=== PATIENT | male | born 1990 | race Caucasian/White ===

== ENCOUNTER → 2024-06-04 08:49 | Outpatient (BNVA) | payer MEDICAID, SELFPAY | PROVIDERS: Family Provider Family Medicine; Visit Provider Orthopaedic Surgery | DX: M25.512 Pain in left shoulder (principal); G89.29 Other chronic pain | CPT/HCPCS: 73030 ==

== ENCOUNTER 2024-06-12 09:08 | Outpatient (CLI) | payer MEDICAID, SELFPAY ==
--- NOTE | 2024-06-12 09:30 | MR_ITS ---
WS: [id number] MRI LEFT SHOULDER HISTORY: possible labral tear COMPARISON: Radiographs 06/04/2024 TECHNIQUE: Multiplanar sequences of the shoulder joint are submitted. Moderate AC joint arthritis. Narrowing of the AC joint with mild inflammatory changes in the capsule and fluid to the AC ligament. Slight downsloping of the acromion and mild subacromial impingement. No os acromiale. Biceps tendon is in normal position. Slightly high riding humeral head. No fluid signal in the distal supraspinatus tendon. There is mild tendinopathy. No muscle atrophy or edema. Infraspinatus and subscapularis tendons are intact. Redundant soft tissue in the anterior inferior shoulder joint. The adjacent labrum is absent along the posterior glenoid. Thickening of the anterior labrum and abnormal signal. Suspect there is a labral tear which may be displaced into the inferior glenohumeral joint. There is signal abnormality in both the anterior and inferior labrum. The superior labrum is intact. Posterior labrum is also negative. MR/MR shoulder LT con* [id number] IMPRESSION: 1. Moderate AC joint arthritis. 2. Mild tendinopathy in the distal supraspinatus but no tear. 3. Abnormal anterior and inferior labrum. There is redundant soft tissue exten ding into the glenohumeral joint, inferiorly. Suspect labral tear and a fragmen t may be displaced into the joint space.
== END 2024-06-12 09:09 | disposition home or self-care (01) ==
PROVIDERS: Family Provider Family Medicine; Visit Provider Orthopaedic Surgery
DX: M19.012 Primary osteoarthritis, left shoulder (principal); M67.814 Other specified disorders of tendon, left shoulder; R93.7 Abnormal findings on diagnostic imaging of other parts of musculoskeletal system
CPT/HCPCS: 73221

== ENCOUNTER 2024-06-24 16:52 | Outpatient (CLI) | payer MEDICAID, SELFPAY ==
--- NOTE | 2024-06-24 17:09 | XR_ITS ---
WS: [id number] Exam: XR chest 2V* [id number] Date/Time of Exam: 06/24/2024 5:09 PM Reason For Exam: HIGH BLOOD PRESSURE Comparison 02/14/2011. Lungs are fully inflated and clear. Normal cardiomediastinal silhouette and regional bony structures. Mild levoscoliosis of the lower T-spine. No pleural effusion. XR/XR chest 2V* [id number] IMPRESSION: 1. Negative chest.
--- NOTE | 2024-06-24 17:57 | ECG_ITS ---
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 Measurements Intervals [place] Rate: 85 P: 14 WI: 163 QRS: -24 QRSD: 96 T: -14 QT: 354 QTc: 423 Interpretive Statements SINUS RHYTHM BORDERLINE LEFT AXIS DEVIATION [QRS AXIS < -20] VOLTAGE CRITERIA FOR LVH [MEETS CRITERIA IN ONE OF: R(aVL), S(V1), R(V5), R(V5/V6)+S(V1)] No previous ECG available for comparison Electronically Signed On 06-24-2024 18:53:46 CDT by Lizzie Alvarez M.D. [email or web address]
== END 2024-06-24 16:53 | disposition home or self-care (01) ==
PROVIDERS: PCP Nurse Practitioner; Visit Provider Nurse Practitioner
DX: I10 Essential (primary) hypertension (principal); Z01.818 Encounter for other preprocedural examination; M41.84 Other forms of scoliosis, thoracic region; R94.31 Abnormal electrocardiogram [ECG] [EKG]
CPT/HCPCS: 71046; 93005

== ENCOUNTER 2024-07-04 05:00 | Outpatient (RCR) | payer MEDICAID, SELFPAY | END 2024-08-03 23:55 | disposition home or self-care (01) | LOC: GPT 05:00 | PROVIDERS: Visit Provider Orthopaedic Surgery | DX: M25.511 Pain in right shoulder (principal); G89.29 Other chronic pain | CPT/HCPCS: 97110; 97162 ==

== ENCOUNTER 2024-08-04 06:30 | Outpatient (RCR) | payer MEDICAID, SELFPAY | END 2024-09-02 23:59 | disposition home or self-care (01) | LOC: GPT 06:30 | PROVIDERS: Visit Provider Orthopaedic Surgery | DX: M25.511 Pain in right shoulder (principal); G89.29 Other chronic pain | CPT/HCPCS: 97110 ==

== ENCOUNTER 2024-09-03 05:00 | Outpatient (RCR) | payer MEDICAID, SELFPAY | END 2024-10-03 23:59 | disposition home or self-care (01) | LOC: GPT 05:00 | PROVIDERS: Visit Provider Orthopaedic Surgery | DX: M25.511 Pain in right shoulder (principal); G89.29 Other chronic pain | CPT/HCPCS: 97110; 97530 ==

== ENCOUNTER 2024-09-05 14:42 | Emergency (ER) | payer MEDICAID, SELFPAY ==
--- OUTSIDE RECORDS SUMMARY | 2024-06-24 10:50 | XMS_ITS ---
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 no marijuana for several months. no daily etoh Problems Problem Type SNOMED Code ICD Code Onset Dates Problem Status W/U Status Risk Notes Problem Primary hypertension (I10) Active confirmed Vital Signs Temperature 98.0 degrees Fahrenheit 06/25/19 25 Blood pressure systolic 142 mm Hg 06/25/19 25 Blood pressure diastolic 86 mm Hg 025 Heart Rate 87 /min 06/24/2024 Height 70.5 in 06/24/2024 Weight 333.4 lbs 06/24/2024 BMI 47.16 kg/m2 06/24/2024 Oximetry 97 % 06/24/2024 Height-cm 179.07 cm 06/24/2024 Weight-kg 151.23 kg 06/24/2024 510-left shoulder pain Encounters Encounter Location Date [facility] [address] [facility] [address] [place] [address] 06/24/2024 Linette Anthony Pain in left shoulde r M25.512 ; Primary hypertension I10 ; Preoperative clearance Z01.818 and GERD without esophagitis K21.9 Assessments Encounter Date Diagnosis (ICD Code) Assessment Notes Treatment Notes Treatment Clinical Notes Section Notes 06/24/2024 Pain in left shoulder (ICD-10 - M25.512) 06/24/2024 Primary hypertension (ICD-10 - I10) 06/24/2024 Preoperative clearance (ICD-10 - Z01.818) 06/24/2024 GERD without esophagitis (ICD-10 - K21.9) Plan Of Treatment Medication Medication Name Sig Start Date Stop Date Notes Losartan Potassium 25 MG 1 tablet Orally Once a day; Duration: 30 days 06/24/2024 Next Appt Details Provider Name:Linette Sherrell Anthony , 10/09/2024 10:00:00 AM, [address] [place] [address], [phone], Provider Name:Linette Wynne , 12/11/2024 02:00:00 PM, [address] [place] [address], [phone], Progress Notes * ANGELIA MIDDLETON KDOB:1990 (34 yo M)Acc No.[id number]:06/24/2024 Patient: ANGELIA CRUZ Provider: Ora Anthony :1990 A ge:33 Y S ex:Male Date:06/24/2024 Address:[address] [place], [place] [id number] Subjective: * Chief Complaints: * 1 . surgery clearance for Monday [facility] Orthopedics print and send note with pt. * HPI: T ransition of Care: Here needing surgical clearance scheduled for left shoulder repair at [facility] Ortho on Mon06/26/24 arthroscopy , Dr Diaz [facility]. * ROS: E NT: Patient complains of s easonal allergies. R espiratory: Patient denies d ifficulty breathing, shortness of breath with exertion. C ardiovascular: Patient denies c hest pain with exertion, dyspnea on exertion, palpitations. H igh blood pressure h ypertension. H ematology: Patient denies , bleeding problems. M usculoskeletal: Patient complains of l eft shoulder pain. N eurologic: Patient denies s eizures. * Medical History: M edical History Verified. * Medications: N one * Allergies: N .K.D.A. Objective: * Vitals: B P:142/86mm Hg, HR:87/min, Temp:98.0F, Oxygen sat %:97%, Wt:333.4lbs, Wt-k.23 kg, Ht: 70.5 in, Ht-cm: 179.07 cm, BMI:47.16Index, Pain scale:51-10, Body Surface Area: 2.74. 5/10-left shoulder pain. * P ast Orders: L ab:LIPID PANEL, STANDARD ([id number]) (Order Date - 05/28/2024) (Collection Date & Time - 05/28/2024 09:51 AM) Value Reference Range TRIGLYCERIDES 157 H <150 - mg/dL CHOLESTEROL, TOTAL 169 <200 - mg/dL HDL CHOLESTEROL 43 > OR = 40 - mg/dL LDL-CHOLESTEROL 101 H - mg/dL (calc) CHOL/HDLC RATIO 3.9 <5.0 - (calc) NON HDL CHOLESTEROL 126 <130 - mg/dL (calc) L ab:COMPREHENSIVE METABOLIC PANEL ([id number]) (Order Date - 05/28/2024) (Collection Date & Time - 05/28/2024 09:51 AM) Value Reference Range GLUCOSE 110 H 65-99 - mg/dL UREA NITROGEN (BUN) 19 7-25 - mg/dL CREATININE 1.05 0.60-1.26 - mg/dL BUN/CREATININE RATIO SEE NOTE: 6-22 - (calc) SODIUM 137 135-146 - mmol/L POTASSIUM 4.5 3.5-5.3 - mmol/L CHLORIDE 103 98-110 - mmol/L CARBON DIOXIDE 26 20-32 - mmol/L CALCIUM 9.3 8.6-10.3 - mg/dL PROTEIN, TOTAL 7.3 6.1-8.1 - g/dL ALBUMIN 4.2 3.6-5.1 - g/dL GLOBULIN 3.1 1.9-3.7 - g/dL (calc ) ALBUMIN/GLOBULIN RATIO 1.4 1.0-2.5 - (calc) BILIRUBIN, TOTAL 0.5 0.2-1.2 - mg/dL ALKALINE PHOSPHATASE 65 36-130 - U/L AST 15 10-40 - U/L ALT 20 9-46 - U/L EGFR 97 > OR = 60 - mL/min/1 .73m2 L ab:CBC (INCLUDES DIFF/PLT) ([id number]) (Order Date - 05/28/2024) (Collection Date & Time - 05/28/2024 09:51 AM) Value Reference Range WHITE BLOOD CELL COUNT 7.2 3.8-10.8 - [place]/uL RED BLOOD CELL COUNT 4.98 4.20-5.80 - Million /uL HEMOGLOBIN 14.5 13.2-17.1 - g/dL HEMATOCRIT 45.1 38.5-50.0 - % MCV 90.6 80.0-100.0 - fL MCH 29.1 27.0-33.0 - pg MCHC 32.2 32.0-36.0 - g/dL RDW 12.6 11.0-15.0 - % PLATELET COUNT 283 140-400 - Thousand/u L NEUTROPHILS 51.8 - % ABSOLUTE NEUTROPHILS 3730 4148-9224 - cells/u L LYMPHOCYTES 38.4 - % ABSOLUTE LYMPHOCYTES 2765 850-3900 - cells/uL MONOCYTES 5.9 - % ABSOLUTE MONOCYTES 425 200-950 - cells/uL EOSINOPHILS 3.1 - % ABSOLUTE EOSINOPHILS 223 15-500 - cells/uL BASOPHILS 0.8 - % ABSOLUTE BASOPHILS 58 0-200 - cells/uL MPV 10.4 7.5-12.5 - fL L ab:URINALYSIS, COMPLETE W/REFLEX TO CULTURE ([id number]) (Order Date - 05/28/2024) (Collection Date & Time - 05/28/2024 09:51 AM) Value Reference Range COLOR YELLOW YELLOW - APPEARANCE CLEAR CLEAR - BILIRUBIN NEGATIVE NEGATIVE - KETONES NEGATIVE NEGATIVE - SPECIFIC GRAVITY 1.023 1.001-1.035 - OCCULT BLOOD NEGATIVE NEGATIVE - PH 6.0 5.0-8.0 - PROTEIN NEGATIVE NEGATIVE - NITRITE NEGATIVE NEGATIVE - LEUKOCYTE ESTERASE NEGATIVE NEGATIVE - WBC NONE SEEN < OR = 5 - /HPF RBC NONE SEEN < OR = 2 - /HPF SQUAMOUS EPITHELIAL CELLS NONE SEEN < OR = 5 - /HP F BACTERIA NONE SEEN NONE SEEN - /HPF HYALINE CAST NONE SEEN NONE SEEN - /LPF GLUCOSE NEGATIVE NEGATIVE - L ab:TSH W/REFLEX TO FT4 ([id number]) (Order Date - 05/28/2024) (Collection Date & Time - 05/28/2024 09:51 AM) Value Reference Range TSH W/REFLEX TO FT4 1.97 0.40-4.50 - mIU/L * Examination: G eneral Examination: General appearance: a lert, pleasant, overweight and in no acute distress . Head: n ormocephalic, atraumatic . Eyes: n ormal . Nose: n ziyad patent . Oral cavity: n ormal . Throat: c lear . Neck / thyroid: t rachea midline . Lymph nodes: n o cervical lymphadenopathy . Heart: r egular rate and rhythm without murmurs, gallops, clicks or rubs bp 150/100 large cuff. Lungs: c lear to auscultation bilaterally, with good air movement and no rales, rhonchi or wheezes . Abdomen: s oft with good bowel sounds, nontender, and no masses or hepatosplenomegaly . Extremities: n egative homans right LE. no edema or erythema. Peripheral pulses: n ormal 2+ arterial pulses . Neurologic: a lert and oriented . Psych: a lert and oriented x 3 thought process is logical and goal directed without suidical ideation or delusions Flat affect. Assessment: * Assessment: 1. P ain in left shoulder - M25.512 (Primary) 2 . P rimary hypertension - I10 3 . P reoperative clearance - Z01.818 4 . G ERD without esophagitis - K21.9 Plan: * Treatment: * Procedure Codes: 1 125F AMNT PAIN NOTED PAIN PRSNT, 1126F AMNT PAIN NOTED NONE PRSNT * Billing Information: * Visit Code: * Procedure Codes: 1125F AMNT PAIN NOTED PAIN PRSNT. 1126F AMNT PAIN NOTED NONE PRSNT. * Electronic signature of Julio Anthony [email or web address] on 09/05/2024 at 02:46 PM CDT Sign off status: Pending * Provider: Ora Anthony Date: 0 06/24/2024 Generated for Tess vargas/Chrissy/Shruti on: 0 09/05/2024 02:46 PM CDT History and Physical Notes * HPI (History of Present Illness) Category Sub-Category Detail Notes Category Not es Transition of Care Here needing surgical clearance scheduled for left shoulder repair at [facility] Ortho on 06/26/24 arthroscopy , Dr Diaz, [facility] Examination Category Sub-Category Detail Notes Category Not es General Examination General appearance: alert, p leasant, overweight and in no acute distress Head: normocephalic, atrau matic Eyes: normal Nose: nares patent Throat: clear Neck / thyroid: trachea midline Heart: regular rate and rhy thm without murmurs, gallops, clicks or rubs bp 150/100 large cuff Lungs: clear to auscultatio n bilaterally, with good air movement and no rales, rhonchi or wheezes Abdomen: soft with good bowel sounds, nontender, and no masses or hepatosplenomegaly Neurologic: alert and oriented Extremities: negative homans righ t LE. no edema or erythema Peripheral pulses: normal 2+ arterial p ulses Lymph nodes: no cervical lymphade nopathy Psych: alert and oriented x 3 thought process is logical and goal directed without suidical ideation or delusions Flat affect Oral cavity: normal
--- OUTSIDE RECORDS SUMMARY | 2024-09-03 09:40 | XMS_ITS ---
Author Organization [employer] [facility] Address [address] [address] Care Team Providers Care Pathology Secretary/Transcriptionist Name Role Phone Linette Anthony Unavailable [phone] Reason For Referral Reason oz cardiology Diagnosis 1 Intermittent chest p ain (R07.9) Referral Organization [employer] [facility] Referring Provider First Name Linette Referring Provider Last Name Referring Provider Speciality [facility] Referred Provider [facility] General Notes Ale Vail 2024 06:56:33 AM >ID, insurance card, EKG and chest xray attached. Referral faxed. Referral Priority Routine REASON FOR VISIT SOB, chest pain Medications Medication SIG (Take, Route, Frequency, Duration) Notes Start Date End Date Status Losartan Potassium 25 MG 1 tablet Orally Once a day 06/24/2024 Active Social History Sex Assigned At : Social History Observation Description Sex Assigned At Male Vital Signs Temperature 98.3 degrees Fahrenheit 09/04/19 25 Blood pressure systolic 128 mm Hg 09/04/19 25 Blood pressure diastolic 98 mm Hg 025 Heart Rate 77 /min 09/03/2024 Height 70.5 in 09/03/2024 Weight 333.8 lbs 09/03/2024 BMI 47.21 kg/m2 09/03/2024 Oximetry 97 % 09/03/2024 Height-cm 179.07 cm 09/03/2024 Weight-kg 151.41 kg 09/03/2024 bp at home 120s/80s Encounters Encounter Location Date [facility] [address] [place] [phone] 09/03/2024 Linette Anthony Primary hypertension I10 and Intermittent chest pain R07.9 Assessments Encounter Date Diagnosis (ICD Code) Assessment Notes Treatment Notes Treatment Clinical Notes Section Notes 09/03/2024 Primary hypertension (ICD-10 - I10) 09/03/2024 Intermittent chest pain (ICD-10 - R07.9) 09/03/2024 Other to er promptly if any wosening sx Plan Of Treatment Treatment Notes Assessment Notes Other to er promptly if an y wosening sx Referrals Referral Date Details 09/04/2024 09/04/2024, [facility], [facility] Next Appt Details Follow Up: prn, Reason: Provider Name:Linette Anthony , 10/09/2024 10:00:00 AM, [address] [place] [address], [phone], Provider Name:Linette Anthony , 12/11/2024 02:00:00 PM, [address] [place] [address], [phone], Progress Notes * ANGELIA MIDDLETON KDOB:1990 (34 yo M)Acc No.[id number]:09/03/2024 Patient: Paul EASON ANGELIA K Provider: Ora Anthony :1990 A ge:34 Y S ex:Male Date:09/03/2024 Address:[address] [place], [place] [phone] Subjective: * Chief Complaints: * S OB, chest pain * HPI: C are Coordination Assessment: pt complains of chest pain and SOB for the last couple of weeks pain radiates into left shoulder . i ntermittent. usually while working. pt wants to make sure that the sympomts are not an adverse effect of the BP medication. * ROS: R espiratory: Patient complains of c hest pain . C ardiovascular: Chest pain with exertion a dmits. M usculoskeletal: Pain in shoulder(s) a dmits. * Medical History: * Medications: T akingLosartan Potassium 25 MG Tablet 1 tablet Orally Once a day Taking Losartan Potassium 25 MG Tablet 1 tablet Orally Once a day Objective: * Vitals: B P:128/98mm Hg, HR:77/min, Temp:98.3F, Oxygen sat %:97%, Wt:333.8lbs, Wt-k.41 kg, Ht: 70.5 in, Ht-cm: 179.07 cm, BMI:47.21Index, Body Surface Area: 2.74. bp at home 120s/80s. * Examination: G eneral Examination: General appearance: a lert, pleasant, well-nourished and in no acute distress. mom is present in exam room. Head: n ormocephalic, atraumatic . Eyes: n ormal . Nose: n ziyad patent . Lymph nodes: n o cervical lymphadenopathy . Heart: r egular rate and rhythm without murmurs, gallops, clicks or rubs . Lungs: c lear to auscultation bilaterally, with good air movement and no rales, rhonchi or wheezes . Neurologic: a lert and oriented . Psych: c ooperative with exam . Assessment: * Assessment: 1. P rimary hypertension - I10 (Primary) 2 . I ntermittent chest pain - R07.9 Plan: * Treatment: 2. O thers Notes: to er promptly if any wosening sx * Procedure Codes: * Follow Up: p rn * Billing Information: * Visit Code: 68716 Office Visit, Est Pt., Level 3. * Procedure Codes: * Sign off status: Completed true * Provider: Ora Anthony Date: 09/03/2024 Generated for Tess vargas/Chrissy/Shruti on: 09/05/2024 02:46 PM CDT History and Physical Notes * HPI (History of Present Illness) Category Sub-Category Detail Notes Category Not es Care Coordination Assessment pt complains of chest pain and SOB for the last couple of weeks pain radiates into left shoulder . intermittent. usually while working. pt wants to make sure that the sympomts are not an adverse effect of the BP medication Examination Category Sub-Category Detail Notes Category Not es General Examination General appearance: alert, p leasant, well-nourished and in no acute distress. mom is present in exam room Head: normocephalic, atrau matic Eyes: normal Nose: nares patent Heart: regular rate and rhy thm without murmurs, gallops, clicks or rubs Lungs: clear to auscultatio n bilaterally, with good air movement and no rales, rhonchi or wheezes Neurologic: alert and oriented Lymph nodes: no cervical lymphade nopathy Psych: cooperative with exa m Consultation Request Notes Referral Date Referring Provider Referred Provider Not es 09/04/2024 Linette Anthony [facility], [facility] cardiology
[2024-09-05 14:44] VITALS: BP 147/87; PULSE 91; RESP 18; TEMP 36.7; O2SAT 98; BMI 44.7
--- NOTE | 2024-09-05 14:46 | ECG_ITS ---
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
--- OUTSIDE RECORDS SUMMARY | 2024-09-05 14:47 | XMS_ITS | Patient Health Record ---
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 Name Role Phone Linette Anthony Unavailable [phone] Allergies No Known Allergies Results Component Value Reference Range Notes TSH W/REFLEX TO FT4 ([id number]) Reviewed date:05/29/2024 03:21:17 PM Interpretation: Performing Lab:[facility] [employer] Jose-[id number] Isabel Dexter, [id number] Jignesh Agustin MD Notes/Report: 0 0 0 0 0 TSH W/REFLEX TO FT4 1.97 0.40-4.50 mIU/L URINALYSIS, COMPLETE W/REFLE X TO CULTURE ([id number]) Reviewed date:05/29/2024 03:21:17 PM Interpretation: Performing Lab:Sid HENDERSON-Nwbuau39819 Isabel Dexter, [id number] Jignesh Agustin MD Notes/Report: 0 0 0 0 0 0 0 0 0 0 COLOR YELLOW YELLOW APPEARANCE CLEAR CLEAR SPECIFIC GRAVITY 1.023 1.001-1.035 PH 6.0 5.0-8.0 GLUCOSE NEGATIVE NEGATIVE BILIRUBIN NEGATIVE NEGATIVE KETONES NEGATIVE NEGATIVE OCCULT BLOOD NEGATIVE NEGATIVE PROTEIN NEGATIVE NEGATIVE NITRITE NEGATIVE NEGATIVE LEUKOCYTE ESTERASE NEGATIVE NEGATIVE WBC NONE SEEN < OR = 5 /HPF RBC NONE SEEN < OR = 2 /HPF SQUAMOUS EPITHELIAL CELLS NONE SEEN < OR = 5 /HPF BACTERIA NONE SEEN NONE SEEN /HPF HYALINE CAST NONE SEEN NONE SEEN /LPF NOTE This urine was analyzed for the presence of WBC, RBC, bacteria, casts, and other formed elements. Only those elements seen were reported. REFLEXIVE URINE CULTURE NO C ULTURE INDICATED CBC (INCLUDES DIFF/PLT) ([id number]) Reviewed date:05/29/2024 03:21:17 PM Interpretation: Performing Lab:Sid HENDERSON-[id number] Chandra [id number] Jignesh Agustin MD Notes/Report: 0 0 0 0 0 WHITE BLOOD CELL COUNT 7.2 3.8-10.8 Thousand/ uL RED BLOOD CELL COUNT 4.98 4.20-5.80 Million/uL HEMOGLOBIN 14.5 13.2-17.1 g/dL HEMATOCRIT 45.1 38.5-50.0 % MCV 90.6 80.0-100.0 fL MCH 29.1 27.0-33.0 pg MCHC 32.2 32.0-36.0 g/dL For adults, a slight decrease in the calculated MCHC value (in the range of 30 to 32 g/dL) is most likely not clinically significant; however, it should be interpreted with caution in correlation with other red cell parameters and the patient's clinical condition. RDW 12.6 11.0-15.0 % PLATELET COUNT 283 140-400 Thousand/uL MPV 10.4 7.5-12.5 fL ABSOLUTE NEUTROPHILS 3730 6691-2228 cells/uL ABSOLUTE LYMPHOCYTES 2765 850-3900 cells/uL ABSOLUTE MONOCYTES 425 200-950 cells/uL ABSOLUTE EOSINOPHILS 223 15-500 cells/uL ABSOLUTE BASOPHILS 58 0-200 cells/uL NEUTROPHILS 51.8 LYMPHOCYTES 38.4 MONOCYTES 5.9 EOSINOPHILS 3.1 BASOPHILS 0.8 COMPREHENSIVE METABOLIC PANE L (23098) Reviewed date:05/29/2024 03:21:17 PM Interpretation: Performing Lab:Sid HENDERSON-Olefai72963 Isabel Dexter [id number] Jignesh Agustin MD Notes/Report: 0 0 0 0 0 GLUCOSE 110 65-99 mg/dL Fasting reference interval For someone without known diabetes, a glucose value between 100 and 125 mg/dL is consistent with prediabetes and should be confirmed with a follow-up test. UREA NITROGEN (BUN) 19 7-25 mg/dL CREATININE 1.05 0.60-1.26 mg/dL EGFR 97 > OR = 60 mL/min/1.73m2 BUN/CREATININE RATIO SEE NOTE: 6-22 (calc) reference range. Not Reported: BUN and Creatinine are within SODIUM 137 135-146 mmol/L POTASSIUM 4.5 3.5-5.3 mmol/L CHLORIDE 103 98-110 mmol/L CARBON DIOXIDE 26 20-32 mmol/L CALCIUM 9.3 8.6-10.3 mg/dL PROTEIN, TOTAL 7.3 6.1-8.1 g/dL ALBUMIN 4.2 3.6-5.1 g/dL GLOBULIN 3.1 1.9-3.7 g/dL (calc) ALBUMIN/GLOBULIN RATIO 1.4 1.0-2.5 (calc) BILIRUBIN, TOTAL 0.5 0.2-1.2 mg/dL ALKALINE PHOSPHATASE 65 36-130 U/L AST 15 10-40 U/L ALT 20 9-46 U/L LIPID PANEL, STANDARD (7600) Reviewed date:05/29/2024 03:21:17 PM Interpretation: Performing Lab:[facility] [employer]-[id number] Isabel [facility], [id number] JillNilda Agustin MD Notes/Report: 0 0 0 0 0 CHOLESTEROL, TOTAL 169 <200 mg/dL HDL CHOLESTEROL 43 > OR = 40 mg/dL TRIGLYCERIDES 157 <150 mg/dL LDL-CHOLESTEROL 101 Reference range: <100 Desirable range <100 mg/dL for primary prevention; <70 mg/dL for patients with CHD or diabetic patients with > or = 2 CHD risk factors. LDL-C is now calculated using the Guzman-Wilkinson calculation, which is a validated novel method providing better accuracy than the Friedewald equation in the estimation of LDL-C. Guzman SS et al. ANGELICA. 2013;310(19): 3898-0384 (http://education.Enablon/faq/DYX973) CHOL/HDLC RATIO 3.9 <5.0 (calc) NON HDL CHOLESTEROL 126 <130 mg/dL (calc) For patients with diabetes plus 1 major ASCVD risk factor, treating to a non-HDL-C goal of <100 mg/dL (LDL-C of <70 mg/dL) is considered a therapeutic option. Reason For Referral Reason ozh ortho Diagnosis 1 Pain in left shoulde r (M25.512) [facility] Referring Provider First Name Linette Referring Provider Last Name Referring Provider [facility] Referred Provider [facility], [facility] Notes Ale Vail 2024 09:23:38 AM >Insurance and ID attached. Referral faxed., Ale Vail 06/04/2024 11:33:42 AM >Rec'd fax verifying appt 06/04/24 at 8:30 am. Pt notified by their clinic. Referral Priority Routine Referral Appointment Date 06/04/2024 Reason [facility] cardiology Diagnosis 1 Intermittent chest p ain (R07.9) Referral Organization [facility] [employer] Referring Provider First Name Linette Referring Provider Last Name Chen[place] Referring Provider [facility] Notes Ale Vail 2024 06:56:33 AM >ID, insurance card, EKG and chest xray attached. Referral faxed. Referral Priority Routine Medications Medication SIG (Take, Route, Frequency, Duration) [...] Problem Status W/U Status Risk Notes Problem Chronic pain (66506306) Other chronic pain (G89.29) Active confirmed Problem Primary hypertension (38370496) Primary hypertension (I10) Active confirmed Problem Pain in right sacroiliac joint (235190555465965 07) Pain of right sacroiliac joint (M53.3) Active confirmed Problem Mixed anxiety and depressive disorder (350341404) Mixed anxiety and depressive disorder (F41.8) Active confirmed Vital Signs Heart Rate 77 /min 09/03/2024 bp at home 120s /80s Temperature 98.3 degrees Fahrenheit 09/03/2024 bp a t home 120s/80s Height-cm 179.07 cm 09/03/2024 bp at home 120s /80s Oximetry 97 % 09/03/2024 bp at home 120s /80s Blood pressure diastolic 98 mm Hg 09/03/2024 bp at home 120s/80s Weight-kg 151.41 kg 09/03/2024 bp at home 120s /80s Height 70.5 in 09/03/2024 bp at home 120s /80s Blood pressure systolic 128 mm Hg 09/03/2024 bp a t home 120s/80s Weight 333.8 lbs 09/03/2024 bp at home 120s /80s BMI 47.21 kg/m2 09/03/2024 bp at home 120s /80s Encounters Encounter Location Date Provider Diagnosis [facility] [address] [address] 06/24/2024 Linette Chenoa Pain in left shoulde r M25.512 ; Primary hypertension I10 ; Preoperative clearance Z01.818 and GERD without esophagitis K21.9 [facility] [address] [address] 04/30/2024 Linette Chenoa Pain in left shoulde r M25.512 ; Other chronic pain G89.29 ; Mixed anxiety and depressive disorder F41.8 and Blood pressure elevated without history of HTN R03.0 [facility] [address] [address] 05/28/2024 Linette Chenoa Blood pressure elevated without history of HTN R03.0 [facility] [address] [address] 06/11/2024 Linette Chenoa Pain in left shoulde r M25.512 ; Mixed anxiety and depressive disorder F41.8 and Pain of right sacroiliac joint M53.3 [facility] [address] [address] 07/09/2024 Linette Chenoa Primary hypertension I10 and Fatigue, unspecified type R53.83 [facility] [address] [address] 09/03/2024 Linette Chenoa Primary hypertension I10 and Intermittent chest pain R07.9 [facility] [address] [address] 05/27/2024 Linette Chenoa Assessments Encounter Date Diagnosis (ICD Code) Assessment Notes Treatment Notes Treatment Clinical Notes Section Notes 04/30/2024 Other chronic pain (ICD-10 - G89.29) 04/30/2024 Pain in left shoulder (ICD-10 - M25.512) 05/28/2024 Blood pressure elevated without history of HTN (ICD-10 - R03.0) labs drawn by Suraj Jones LPN 06/11/2024 Pain in left shoulder (ICD-10 - M25.512) Keep MRI and Ortho follow-up appointment 06/11/2024 Mixed anxiety and depressive disorder (ICD-10 - F41.8) Info given for use [employer] 06/24/2024 Pain in left shoulder (ICD-10 - M25.512) 06/24/2024 Primary hypertension (ICD-10 - I10) 07/09/2024 Primary hypertension (ICD-10 - I10) 07/09/2024 Fatigue, unspecified type (ICD-10 - R53.83) 09/03/2024 Primary hypertension (ICD-10 - I10) 09/03/2024 Intermittent chest pain (ICD-10 - R07.9) 04/30/2024 Mixed anxiety and depressive disorder (ICD-10 - F41.8) 06/24/2024 Preoperative clearance (ICD-10 - Z01.818) 06/11/2024 Pain of right sacroiliac joint (ICD-10 - M53.3) He will try the Flexeril at nighttime. See if it gives him some SI joint pain relief. He reports that it was not helpful for his shoulder 04/30/2024 Blood pressure elevated without history of HTN (ICD-10 - R03.0) 06/24/2024 GERD without esophagitis (ICD-10 - K21.9) 07/09/2024 Other Starting a Weight-Loss Plan: Care Instructions material was printed, When You Want to Lose Weight: Care Instructions material was printed 09/03/2024 Other to er promptly if any wosening sx Plan Of Treatment Next Appt Details Provider Name:Linette Anthony , 10/09/2024 10:00:00 AM, [address], [facility], [place], [address], Provider Name:Linette Anthony , 12/11/2024 02:00:00 PM, [address], [facility] [address], [place], [address], Insurance Providers Payer Name Payer Address Payer Phone Subscriber Number Group Number Insured Name Patient Relationship to Insured Coverage Start Date Coverage End Date [facility] [address] [place] [phone] [id number] ANGELIA MARTINEZ Self - patient is the insured Medical (General) History Medical History History ICD Code i10
--- NOTE | 2024-09-05 15:07 | XR_ITS ---
WS: [id number] XR chest 1V portable [id number] REASON FOR EXAM: chest pain FINDINGS: Chest is unchanged compared to 06/24/2024. There is cardiomegaly accentuated by relatively poor inspiratory effort compared to the previous examination. Mild tortuosity of the thoracic aorta. Calcified granulomatous disease is present in both hemithoraces. No acute pulmonary parenchymal or pleural abnormality is identified. XR/XR chest 1V portable [id number] IMPRESSION: Cardiomegaly with no acute abnormality.
--- NOTE | 2024-09-05 15:08 | ED_ITS ---
HPI - Chest Pain 2 General: Chief Complaint: Chest Pain Stated Complaint: oscar donaldson Time Seen by Provider: 09/05/24 14:55 History of Present Illness: This patient is a 34-year-old presenting with chest pain. 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 He had a similar episode last week which lasted about 45 minutes and then went away when he rested. He did go and see his primary care provider after that and was told to come to the ER if he had another episode. He has a very strong family history of heart disease with his father having a stent placed at the age of 57 and his mother has a history of irregular heartbeats. Grandparents on both sides have history of early onset cardiac disease as well. The patient is not a smoker. He has only recently started seeing a primary care provider because he did not have insurance until about 4 months ago. He has been started on blood pressure medicine but is not sure what it is. He takes 25 mg once a day in the evenings. He has not taken it yet today. He is not a smoker and never has been. He does not know if he has been checked for high cholesterol or diabetes. He is not taking any fnby-fkt-[id number] supplements although his mother points out that he used to do that. It sounds like he took relatively benign things like cinnamon. He is overweight. He also says he has a problem with his ribs where they are loose and he gets musculoskeletal pain from that. This does not feel the same. He has an injury to his left shoulder that also causes him pain. This also feels different from his shoulder pain. He describes the pain as burning on the left side. He also said he felt like someone would sit on his chest. He also noted shortness of breath and felt like he was in a sauna and the air was too thick to get in and out. In addition to all of this about 2 or 3 weeks ago he had an episode where he was mowing the yard and came in the house telling his mother that he needed some water. He sat down and blacked out . He did not have any chest pain with that episode and had prodromal symptoms that he was going to pass out. Risk Factors: Coronary artery disease risk factors: hypertension and family history of CAD before age 50 Related Data Home Medications ?Medication ?Instructions ?Recorded ?Confirmed losartan 25 mg tablet 25 mg PO QPM 09/05/24 Allergies Allergy/AdvReac Type Severity Reaction Status Date / Time No Known Allergies Allergy Verified 09/05/24 14:51 PFSH ED 2 PFSH: Social History Smoking and tobacco/nicotine status: never used tobacco/nicotine Physical Exam 2 Const: COMMON NORMALS: no acute distress, patient oriented x3, no limitations and alert GENERAL APPEARANCE: cooperative and comfortable OTHER: Morbidly obese, anxious HENMT: HEAD & SCALP: normal to inspection FACE & SINUS: normal facial exam Eye: GENERAL EYE: appearance normal, both eyes and all related structures Neck/C-Spine: COMMON NORMALS: supple, no meningeal signs and no JVD Chest: OTHER: Tender to palpation over the left precordium. Resp: COMMON NORMALS: normal respiratory effort, No use of accessory muscles and clear to auscultation bilaterally AUSCULTATION: clear to auscultation bilaterally OTHER: Diminished breath sounds in the posterior right lower area Cardio: COMMON NORMALS: no JVD, regular rate, regular rhythm and No murmurs present (Cardio) RATE: regular rate RHYTHM: regular rhythm GI: COMMON NORMALS: Normal to inspection, nondistended, normoactive bowel sounds present, Soft to palpation and non-tender INSPECTION: Yes normal to inspection AUSCULTATION: Yes normoactive bowel sounds PALPATION: Yes Soft to palpation Back/Pelvis: COMMON NORMALS: thoracic and lumbar spine normal to inspection Extremity: COMMON NORMALS: normal to inspection Neuro: COMMON NORMALS: patient oriented x3, moves all extremities, no focal motor deficits and no sensory deficits noted SENSORIUM/ORIENTATION: Yes alert MENINGEAL SIGNS: Yes no meningeal signs Psych: COMMON NORMALS: mental status grossly normal, cooperative and normal affect Skin: COMMON NORMALS: no rashes or lesions noted and turgor normal GENERAL SKIN EXAM: no rashes or lesions noted and turgor normal Course 2 Vital Signs: Vital signs: Vital Signs Temperature 98.1 F 09/05/24 14:44 Pulse Rate 78 09/05/24 16:52 Respiratory Rate 18 09/05/24 14:44 Blood Pressure 146/85 09/05/24 16:52 Pulse Oximetry 98 09/05/24 16:52 Oxygen Delivery Me thod Room Air 09/05/24 16:52 MDM - Chest Pain Medical Decision Making Although this patient is young at 34, he does have some risk factors. His family does have history of early onset heart disease although this seems to be degeneration away in his grandparents. He does have a history of high blood pressure and has only recently started on treatment for that. He has not had regular medical care prior to these last couple of months. His symptoms are worse with exertion and come on while he is working. They also come on while he is in the heat so it may be a heat intolerance issue. I do not think it is something we can blame on musculoskeletal causes as he has become symptomatic with that and also had an episode of passing out which may or may not be related to this. Lab Data 09/05/24 15:28 09/05/24 15:28 Radiology Impressions Chest X-Ray 09/05/24 15:07 IMPRESSION: Cardiomegaly with no acute abnormality. Laboratory Results WBC 8.65 10^3/uL (3.29-11.43) 09/05/24 15:28 RBC 4.70 10^6/uL (3.85-5.65) 09/05/24 15:28 Hgb 13.30 g/dL (11.27-16.99) 09/05/24 15:28 Hct 41.2 % (37-53) 09/05/24 15:28 MCV 87.7 fl (82-101) 09/05/24 15:28 MCH 28.3 pg (27-33) 09/05/24 15:28 MCHC 32.3 g/dL (30-55) 09/05/24 15:28 RDW 12.2 % (12.1-15.1) 09/05/24 15:28 Plt Count 229 10^3/cmm (157-399) 09/05/24 15:28 MPV 10.3 fL (7.4-10.4) 09/05/24 15:28 Neut % (Auto) 69.9 % 09/05/24 15:28 Lymph % (Auto) 22.7 % 09/05/24 15:28 [place] % (Auto) 5.2 % 09/05/24 15:28 Eos % (Auto) 1.3 % 09/05/24 15:28 Baso % (Auto) 0.7 % 09/05/24 15:28 Neut # (Auto) 6.05 10^3/uL (1.8-7.7) 09/05/24 15:28 Lymph # (Auto) 2.0 10^3/uL (0.8-4.8) 09/05/24 15:28 [place] # (Auto) 0.5 10^3/uL (0.2-0.9) 09/05/24 15:28 Eos # (Auto) 0.1 10^3/uL (0.0-0.8) 09/05/24 15: Baso # (Auto) 0.1 10^3/uL (0.0-0.1) 09/05/24 15: Nucleated RBC % (auto) 0 % 09/05/24 15: Nucleated RBCs # 0.0 /100WBC 09/05/24 15: Sodium 137 mmol/L (136-145) 09/05/24 15: Potassium 4.2 mmol/L (3.5-5.1) 09/05/24 15: Chloride 102 mmol/L (98-107) 09/05/24 15: Carbon Dioxide 21 mmol/L (22-29) L 09/05/24 15: Anion Gap 18.2 (5-19) 09/05/24 15:28 BUN 16 mg/dL (6-20) 09/05/24 15: Creatinine 0.9 mg/dL (0.7-1.2) 09/05/24 15: GFR Calculation 97.8 mL/min (90-130) 09/05/24 15:28 Glucose 97 mg/dL (65-115) 09/05/24 15: Calculated Osmolality 285 mOsm/kg (285-295) 09/05/24 15: Calcium 9.2 mg/dL (8.5-10.5) 09/05/24 15:28 Total Bilirubin 0.4 mg/dL (0.15-1.2) 09/05/24 15:28 AST 16 U/L (0-40) 09/05/24 15:28 ALT 18 U/L (0-41) 09/05/24 15:28 Alkaline Phosphatase 72 U/L (40-130) 09/05/24 15:28 Troponin T Baseline < 6 ng/L (0-15) 09/05/24 15:28 Troponin T 120 Minute < 6.0 ng/L (0-15) 09/05/24 17:06 Delta Troponin T 0 ABS# (0-10) 09/05/24 17:06 NT-Pro-B Natriuret Pep < 36 pg/mL (0-125) 09/05/24 15:28 Total Protein 7.1 g/dL (6.6-8.7) 09/05/24 15:28 Albumin 4.1 g/dL (3.5-5.2) 09/05/24 15:28 Globulin 3.0 g/dL (1.3-4.6) 09/05/24 15:28 Lipase 26 U/L (13-60) 09/05/24 15:28 Urine Color Yellow (Yellow) 09/05/24 16:38 Urine Appearance Clear (CLEAR) 09/05/24 16:38 Urine pH 5.5 (5-7) 09/05/24 16:38 Ur Specific [place] 1.022 (1.005-1.030) 09/05/24 16:38 Urine Protein Negative (Negative) 09/05/24 16:38 Urine Glucose (UA) Negative (Normal) 09/05/24 16:38 Urine Ketones Negative (Negative) 09/05/24 16:38 Urine Blood Negative (Negative) 09/05/24 16:38 Urine Nitrate Negative (Negative) 09/05/24 16:38 Urine Bilirubin Negative (Negative) 09/05/24 16:38 Urine Urobilinogen 0.2 mg/dL (Negative) 09/05/24 16:38 Ur Leukocyte Esterase Negative (Negative) 09/05/24 16:38 Urine RBC 0-2 /hpf (0-2) 09/05/24 16:38 Urine WBC 0-5 /hpf (0-5) 09/05/24 16:38 Ur Squamous Epith Cells 0-5 /hpf (0-5) 09/05/24 16:38 Amorphous Sediment Not Reportable 09/05/24 16:41 Urine Bacteria None seen /hpf (NONE) 09/05/24 16:38 Hyaline Casts 0.40 /lpf 09/05/24 16:38 All radiology interpretation(s) finalized by discharge Clincial Decision Support The following clinical decision support tools were used to aid in care of the patient HEART Score -> History: Moderately Suspicious, EKG: Normal, Age: Less than 45 yrs, Risk Factors: 1 or 2 Risk Factors, Troponin: Baseline Trop <16 ng/L. Resulting HEART Score: 2. Discharge Plan Discharge Patient Disposition: Home Clinical Impression: Chest pain, Hypertension, Heat stress Condition: Stable Prescriptions: No Action losartan 25 mg tablet 25 mg PO QPM Discharge Orders: Discharge ED (Routine); Ordered 09/05/24 Ordered By: Dahiana Lindquist Patient Instructions: Opioid Safety, Pain Management, Patient Portal & Aris Instructions Activity Restrictions/Additional Instructions: Avoid strenuous work in hot temperatures as this seems to be the cause of your symptoms. Follow up with your primary care provider within a week for a recheck. Print Language: Divehi Coding Level of Care Code ED Retread Operator for Brianna Howe
[2024-09-05 15:35] LABS: Hematocrit 41.2 % (37-53); Hemoglobin 13.30 g/dL (11.27-16.99); Mean Corpuscular HGB Conc 32.3 g/dL (30-55); Mean Corpuscular Hemoglobin 28.3 pg (27-33); Mean Corpuscular Volume 87.7 fl (82-101); Nucleated Red Blood Cells % 0 %; Platelet Count 229 10^3/cmm (157-399); Red Blood Count 4.70 10^6/uL (3.85-5.65); White Blood Count 8.65 10^3/uL (3.29-11.43)
[2024-09-05 15:53] LABS: Troponin(5th) Baseline < 6 ng/L (0-15)
[2024-09-05 16:13] LABS: Alanine Aminotransferase 18 U/L (0-41); Albumin Level 4.1 g/dL (3.5-5.2); Alkaline Phosphatase 72 U/L (40-130); Anion Gap 18.2 (5-19); Aspartate Amino Transferase 16 U/L (0-40); Blood Urea Nitrogen 16 mg/dL (6-20); Calcium 9.2 mg/dL (8.5-10.5); Carbon Dioxide 21 mmol/L (22-29); Chloride 102 mmol/L (98-107); Creatinine Clr Calc Pharmacy 177.3900; Globulin 3.0 g/dL (1.3-4.6); Glucose 97 mg/dL (65-115); Lipase 26 U/L (13-60); NT Pro B Type Natriuretic Pept < 36 pg/mL (0-125); Osmolality Calculated 285 mOsm/kg (285-295); Potassium 4.2 mmol/L (3.5-5.1); Sodium 137 mmol/L (136-145); Total Protein 7.1 g/dL (6.6-8.7)
[2024-09-05 16:51] LABS: Glucose Urine UA Negative (Normal); Nitrate Urine Negative (Negative); Specific Gravity, Urine 1.022 (1.005-1.030)
[2024-09-05 16:52] VITALS: BP 146/85; PULSE 78; O2SAT 98
[2024-09-05 16:54] LABS: Add Urine Microscopic? YES
[2024-09-05 17:35] LABS: Troponin 5 2HR < 6.0 ng/L (0-15); Troponin 5 2HR Delta 0 ABS# (0-10)
[2024-09-05 18:03] VITALS: BP 155/72; PULSE 82; O2SAT 98
== END 2024-09-05 18:04 | disposition home or self-care (01) ==
PROVIDERS: Emergency Provider Emergency Medicine
DX: R07.9 Chest pain, unspecified (principal); I10 Essential (primary) hypertension; T67.8XXA Other effects of heat and light, initial encounter; X30.XXXA Exposure to excessive natural heat, initial encounter
CPT/HCPCS: 36415; 71045; 80053; 81001; 83690; 83880; 84484; 85025; 93005; 93010; 99285; J9999

== ENCOUNTER 2024-10-04 06:30 | Outpatient (RCR) | payer MEDICAID, SELFPAY | END 2024-11-03 23:59 | disposition home or self-care (01) | LOC: GPT 06:30 | PROVIDERS: PCP Nurse Practitioner; Visit Provider Orthopaedic Surgery | DX: M25.511 Pain in right shoulder (principal); G89.29 Other chronic pain | CPT/HCPCS: 97110; 97530 ==

== ENCOUNTER → 2024-10-09 11:11 | Outpatient (BNVA) | payer MEDICAID, SELFPAY | PROVIDERS: PCP Nurse Practitioner; Visit Provider Nurse Practitioner | DX: J06.9 Acute upper respiratory infection, unspecified (principal) | CPT/HCPCS: 71046 ==

== ENCOUNTER 2024-11-04 06:30 | Outpatient (RCR) | payer MEDICAID, SELFPAY | END 2024-11-07 14:34 | disposition home or self-care (01) | LOC: GPT 06:30 | PROVIDERS: PCP Nurse Practitioner; Visit Provider Orthopaedic Surgery | DX: M25.511 Pain in right shoulder (principal); G89.29 Other chronic pain | CPT/HCPCS: 97110 ==

== ENCOUNTER 2024-11-19 12:29 | Outpatient (CLI) | payer MEDICAID, SELFPAY ==
--- NOTE | 2024-11-19 12:41 | ECG_ITS ---
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
[2024-11-19 12:44] VITALS: BMI 44.7
[2024-11-19 13:16] VITALS: BP 144/73; PULSE 112
== END 2024-11-19 12:30 | disposition home or self-care (01) ==
LOC: CDL 12:30
PROVIDERS: PCP Nurse Practitioner; Visit Provider Internal Medicine Cardiovascular Disease
DX: R07.89 Other chest pain (principal); I51.7 Cardiomegaly
CPT/HCPCS: 93017

== ENCOUNTER 2024-12-10 11:41 | Outpatient (CLI) | payer MEDICAID, SELFPAY ==
--- NOTE | 2024-12-10 12:00 | USCV_ITS ---
Curtis Middleton Age: 34 Gender: M : 1990 Exam Date: 12/10/2024 12:06 Ordering Phys: Lizzie Alvarez MD ([email or web address]) Technologist: [place] [facility] [place]ication: cp sob htn BP: 154 / 85 HR: 62 Rhythm: Sinus Technical Quality: Adequate MEASUREMENTS (Male / Female) Normal Values 2D ECHO LV Diastolic Diameter PLAX 4.2 cm 4.2 - 5.9 / 3.9 - 5.3 cm IVS Diastolic Thickness 1.2 cm 0.6 - 1.0 / 0.6 - 0.9 cm IVS Systolic Thickness 2.1 cm LVPW Diastolic Thickness 1.3 cm 0.6 - 1.0 / 0.6 - 0.9 cm LVPW Systolic Thickness 2.1 cm LVOT Diameter 2.0 cm LV Ejection Fraction 2D Teich 64.7 % LV Ejection Fraction MOD 4C 59.5 % LV Ejection Fraction MOD 2C 68.1 % LV Ejection Fraction 2C AL 67.7 % LA Diameter 3.7 cm RA Systolic Volume 4C AL 67.3 ml RA Systolic Volume 4C MOD 65.4 ml Aorta at Sinotubular Diameter 2.7 cm IVC Diameter 1.4 cm M-MODE LA Ao Ratio MM 1.3 AV Cusp Separation MM 2.5 cm DOPPLER AV Peak Velocity 127.0 cm/s LVOT Peak Velocity 102.0 cm/s AV Area Cont Eq vti 3.1 cm squared AV Area Cont Eq pk 2.6 cm squared MV Peak Velocity 91.0 cm/s MV Area PHT 4.0 cm squared Mitral E to A Ratio 1.3 TV Peak Velocity 149.0 cm/s TR Peak Velocity 168.0 cm/s TR Peak Gradient 11.3 mmHg TV Peak E Velocity 117.0 cm/s PV Peak Velocity 104.0 cm/s FINDINGS Left Ventricle Normal left ventricular size and systolic function, EF 68%.. No regional wall motion abnormalities. Mild left ventricular hypertrophy. Right Ventricle Normal right ventricular size and systolic function. Right Atrium Normal right atrial size. Left Atrium Normal left atrial size. IA Septum Appears to be intact Mitral Valve No gross morphologic abnormalities. Aortic Valve No gross morphologic abnormalities. Tricuspid Valve No gross morphologic abnormalities. Pulmonic Valve Pulmonic valve not well visualized. Pericardium No pericardial effusion. Aorta Normal aortic annulus size. IVC Inferior vena cava not visualized. CONCLUSIONS Normal left ventricular size and systolic function, EF 68%.. No regional wall motion abnormalities. Mild left ventricular hypertrophy. Normal cardiac chamber sizes. No gross valvular abnormalities Pulmonic valve not well visualized. No pericardial effusion. No similar previous studies are available for comparison Dr Lizzie Alvarez MD [facility] (Electronically Signed) Final Date: 10 December 2024 16:22 S
== END 2024-12-10 11:42 | disposition home or self-care (01) ==
LOC: RAD 11:42
PROVIDERS: PCP Nurse Practitioner; Visit Provider Internal Medicine Cardiovascular Disease
DX: R06.09 Other forms of dyspnea (principal); I51.7 Cardiomegaly; R07.89 Other chest pain; R07.9 Chest pain, unspecified; I10 Essential (primary) hypertension; R06.02 Shortness of breath
CPT/HCPCS: 93306

== ENCOUNTER 2025-02-12 16:42 | Outpatient (CLI) | payer MEDICAID, SELFPAY ==
--- NOTE | 2025-02-12 16:48 | XRR_ITS ---
PROCEDURE INFORMATION: Exam: XR Pelvis Exam date and time: 02/12/2025 5:02 PM Age: 34 years old Clinical indication: Other: Lumbago with sciatica; Ongoing back and sciatica issues, x6 months ago pain became constant down left leg and intermittent in right TECHNIQUE: Imaging protocol: Radiologic exam of the pelvis. Views: 1 or 2 view. COMPARISON: CR XR lumbar spine min 4V [id number] 02/12/2025 5:02 PM FINDINGS: Bones/joints: Unremarkable. No acute fracture. Soft tissues: Unremarkable. XR/XR pelvis 1-2V* [id number] IMPRESSION: No acute findings.
--- NOTE | 2025-02-12 16:48 | XRR_ITS ---
PROCEDURE INFORMATION: Exam: XR Lumbosacral Spine Exam date and time: 02/12/2025 5:02 PM Age: 34 years old Clinical indication: Lumbago with sciatica; Bilateral; Ongoing back and sciatica issues, x6 months ago pain became constant down left leg and intermittent in right TECHNIQUE: Imaging protocol: Radiologic exam of the lumbosacral spine. Views: 4 or 5 views. COMPARISON: CR XR pelvis 1-2V* [id number] 02/12/2025 5:02 PM FINDINGS: Bones/joints: No evidence of dynamic spondylolisthesis. No definite acute fracture, subluxation, dislocation. Soft tissues: Unremarkable. XR/XR lumbar spine min 4V [id number] IMPRESSION: No definite significant bony abnormality.
== END 2025-02-12 16:43 | disposition home or self-care (01) ==
LOC: RAD 16:43
PROVIDERS: PCP Nurse Practitioner; Visit Provider Nurse Practitioner
DX: M54.42 Lumbago with sciatica, left side (principal); G89.29 Other chronic pain
CPT/HCPCS: 72110; 72170